=== PATIENT | female | born 1935 | race Caucasian/White ===

== ENCOUNTER 2016-09-20 17:15 | Inpatient (IN) | payer MEDICARE, OTHER ==
[2016-09-20] MEDS ORDERED: SODIUM CHLORIDE 0.9% 1000ML 1,000 ML IV ONE (17:20)
[2016-09-20] MEDS ORDERED: FENTANYL 12 MCG PATCH TDM TD SCH (18:00)
[2016-09-20 18:01] LABS: BASOPHILS % (AUTO) 0 % (0-3); EOSINOPHILS % (AUTO) 0 % (0-9); HEMATOCRIT 36 % (35-47); MEAN CORPUSCULAR HGB CONC 34.4 gm/dl (32.0-36.0); MONOCYTES % (AUTO) 5.5 % (0-12); NEUTROPHILS % (AUTO) 86.4 % (37-80)
[2016-09-20] MEDS: SODIUM CHLORIDE 0.9% FLUSH 10 ML SOL IV PRN (18:11)
[2016-09-20 18:17] LABS: ALBUMIN 3.2 gm/dl (3.4-5.0); CALCIUM 8.4 mg/dl (8.5-10.1); POTASSIUM 4.1 mMol/L (3.5-5.1)
[2016-09-20] MEDS ORDERED: ALBUTEROL NEB SOL 2.5MG/3ML 1 VIAL SOL NEB PRN (19:18)
[2016-09-20] MEDS ORDERED: PIPERACILLIN/TAZOBACT 3.375 GM PDS IV ONE (20:26)
[2016-09-20] MEDS: ALBUTEROL/IPRATROPIUM 1 VIAL SOL INH SCH (20:44)
[2016-09-20] MEDS: SOLUMEDROL 125 MG/2 ML 125 MG/2 ML PDS IV SCH (20:44)
[2016-09-20] MEDS: PIPERACILLIN/TAZOBACT 3.375 GM 3.375 GM in SODIUM CHLORIDE 0.9% 100 ML 100 ML IV SCH (20:45)
[2016-09-20] MEDS ORDERED: GABAPENTIN 800 MG PO SCH (21:00)
[2016-09-20] MEDS: PRAVASTATIN SODIUM 20 MG TAB PO SCH (21:07)
[2016-09-20] MEDS: GABAPENTIN 300 MG CAP PO SCH (21:08)
[2016-09-20] MEDS: GABAPENTIN 100 MG CAP PO SCH (21:08)
[2016-09-20] MEDS: ACETAMINOPHEN 325 MG PO PRN (21:08)
[2016-09-21] MEDS: ALBUTEROL/IPRATROPIUM 1 VIAL SOL INH SCH ×4 (02:02→19:52)
[2016-09-21] MEDS: SODIUM CHLORIDE 0.9% FLUSH 10 ML SOL IV PRN ×2 (02:02→19:37)
[2016-09-21] MEDS: PIPERACILLIN/TAZOBACT 3.375 GM 3.375 GM in SODIUM CHLORIDE 0.9% 100 ML 100 ML IV SCH ×4 (02:02→19:44)
[2016-09-21] MEDS: SOLUMEDROL 125 MG/2 ML 125 MG/2 ML PDS IV SCH ×4 (02:02→19:36)
[2016-09-21 07:23] LABS: CALCIUM 7.9 mg/dl (8.5-10.1); POTASSIUM 4.4 mMol/L (3.5-5.1)
[2016-09-21 07:32] LABS: BASOPHILS % (AUTO) 0 % (0-3); EOSINOPHILS % (AUTO) 0 % (0-9); HEMATOCRIT 32 % (35-47); MEAN CORPUSCULAR HGB CONC 35.7 gm/dl (32.0-36.0); MONOCYTES % (AUTO) 0.6 % (0-12); NEUTROPHILS % (AUTO) 94.7 % (37-80)
[2016-09-21] MEDS ORDERED: GABAPENTIN 100 MG CAP PO SCH (09:00)
[2016-09-21] MEDS: GABAPENTIN 100 MG CAP PO SCH ×3 (09:33→20:25)
[2016-09-21] MEDS: GABAPENTIN 300 MG CAP PO SCH ×3 (09:34→20:25)
[2016-09-21] MEDS: ATENOLOL 25 MG TAB PO SCH (09:34)
[2016-09-21] MEDS: CLOPIDOGREL 75 MG TAB PO SCH (09:35)
[2016-09-21] MEDS: PRAVASTATIN SODIUM 20 MG TAB PO SCH (20:25)
[2016-09-22] MEDS: SOLUMEDROL 125 MG/2 ML 125 MG/2 ML PDS IV SCH ×2 (01:13→06:59)
[2016-09-22] MEDS: SODIUM CHLORIDE 0.9% FLUSH 10 ML SOL IV PRN ×4 (01:14→21:12)
[2016-09-22] MEDS: PIPERACILLIN/TAZOBACT 3.375 GM 3.375 GM in SODIUM CHLORIDE 0.9% 100 ML 100 ML IV SCH ×2 (01:19→06:59)
[2016-09-22] MEDS: ALBUTEROL/IPRATROPIUM 1 VIAL SOL INH SCH ×4 (01:41→19:41)
[2016-09-22] MEDS: GABAPENTIN 300 MG CAP PO SCH ×3 (08:34→20:12)
[2016-09-22] MEDS: CLOPIDOGREL 75 MG TAB PO SCH (08:34)
[2016-09-22] MEDS: GABAPENTIN 100 MG CAP PO SCH ×3 (08:34→20:12)
[2016-09-22] MEDS: ATENOLOL 25 MG TAB PO SCH (08:34)
[2016-09-22] MEDS ORDERED: PREDNISONE 20 MG TAB PO SCH (09:00)
[2016-09-22] MEDS: CEFUROXIME 250 MG/5 ML PDR PO SCH ×2 (10:02→21:03)
[2016-09-22] MEDS: ACETAMINOPHEN 325 MG PO PRN ×2 (13:02→21:22)
[2016-09-22] MEDS: PRAVASTATIN SODIUM 20 MG TAB PO SCH (20:12)
[2016-09-22] MEDS: METRONIDAZOLE 250 MG TAB PO SCH (22:50)
[2016-09-23] MEDS: ALBUTEROL/IPRATROPIUM 1 VIAL SOL INH SCH ×2 (01:17→08:05)
[2016-09-23 07:19] LABS: BASOPHILS % (AUTO) 0 % (0-3); EOSINOPHILS % (AUTO) 0 % (0-9); HEMATOCRIT 32 % (35-47); NEUTROPHILS % (AUTO) 74.4 % (37-80)
[2016-09-23 07:30] LABS: CALCIUM 7.7 mg/dl (8.5-10.1); POTASSIUM 3.6 mMol/L (3.5-5.1)
[2016-09-23] MEDS: SODIUM CHLORIDE 0.9% FLUSH 10 ML SOL IV PRN (07:59)
[2016-09-23] MEDS: CLOPIDOGREL 75 MG TAB PO SCH (08:00)
[2016-09-23] MEDS: GABAPENTIN 300 MG CAP PO SCH (08:00)
[2016-09-23] MEDS: METRONIDAZOLE 250 MG TAB PO SCH (08:00)
[2016-09-23] MEDS: GABAPENTIN 100 MG CAP PO SCH (08:00)
[2016-09-23] MEDS: ATENOLOL 25 MG TAB PO SCH (08:01)
[2016-09-23] MEDS: CEFUROXIME 250 MG/5 ML PDR PO SCH (08:05)
[2016-09-23 08:48] VITALS: BP 108/60; TEMP 98.3
[2016-09-23] MEDS ORDERED: PREDNISONE 20 MG TAB PO SCH (09:00)
[2016-09-23] MEDS ORDERED: FENTANYL 12 MCG PATCH TDM TD SCH (09:00)
[2016-09-23] MEDS: ACETAMINOPHEN 325 MG PO PRN (09:37)
[2016-09-23 10:05] VITALS: PULSE 76; RESP 18; O2SAT 92
== END 2016-09-23 11:15 | disposition home or self-care (01) | DRG 190 ==
LOC: UNDOADMIN 17:15 → ACUTE CARE 17:15
PROVIDERS: ADMIT Family Medicine; ATTEND Family Medicine
DX: J44.1 Chronic obstructive pulmonary disease with (acute) exacerbation (principal); J18.1 Lobar pneumonia, unspecified organism; D68.2 Hereditary deficiency of other clotting factors; G62.9 Polyneuropathy, unspecified; Z87.891 Personal history of nicotine dependence; I10 Essential (primary) hypertension; E78.5 Hyperlipidemia, unspecified; Z79.01 Long term (current) use of anticoagulants; J44.0 Chronic obstructive pulmonary disease with (acute) lower respiratory infection; K52.9 Noninfective gastroenteritis and colitis, unspecified
CPT/HCPCS: 36415; 71020; 80048; 80053; 85025; 85610; 94664; J2543; J2930; J7603; J7620

== ENCOUNTER 2016-11-19 16:01 | Emergency (ER) | payer MEDICARE, OTHER ==
[2016-11-19 16:02] VITALS: O2SAT 92
[2016-11-19] MEDS ORDERED: LIDOCAINE HCL 2% MPF SOL ONE (16:29)
[2016-11-19] MEDS ORDERED: LIDOCAINE HCL 2% MPF SOL SC ONE (16:30)
[2016-11-19] MEDS ORDERED: ONDANSETRON 4 MG ODT BU ONE (16:43)
[2016-11-19 16:45] VITALS: BP 171/75; PULSE 102; RESP 22; TEMP 100
[2016-11-19] MEDS ORDERED: CYCLOBENZAPRINE 10 MG TAB ONE (17:09)
[2016-11-19] MEDS ORDERED: CYCLOBENZAPRINE 10 MG TAB PO ONE (17:10)
[2016-11-19] MEDS ORDERED: CYCLOBENZAPRINE HYDROCHLORID 5 MG TAB PO SCH (21:00)
== END 2016-11-19 17:40 | disposition home or self-care (01) | DRG 552 ==
LOC: ED 16:01
DX: M54.5 Low back pain (principal); M62.830 Muscle spasm of back; M48.56XD Collapsed vertebra, not elsewhere classified, lumbar region, subsequent encounter for fracture with routine healing
CPT/HCPCS: 20552; 99283; A6402

== ENCOUNTER 2017-04-04 15:56 | Inpatient (IN) | payer MEDICARE, OTHER ==
[2017-04-04 16:44] LABS: HEMATOCRIT 36 % (35-47); MEAN CORPUSCULAR HGB CONC 34.5 gm/dl (32.0-36.0); MEAN CORPUSCULAR VOLUME 84 fL (81-99)
[2017-04-04 17:26] LABS: ACANTHOCYTES PRESENT; BASOPHILS % (MANUAL) 0 % (0-3); EOSINOPHILS % (MANUAL) 0 % (0-9); LYMPHOCYTES % (MANUAL) 3 % (10-50); OVALOCYTES PRESENT
[2017-04-04] MEDS ORDERED: ACETAMINOPHEN 500 MG 500 MG TAB PO ONE (18:08)
[2017-04-04] MEDS ORDERED: ACETAMINOPHEN 500 MG 500 MG TAB ONE (18:10)
[2017-04-04] MEDS: SODIUM CHLORIDE 0.9% 1000ML 1,000 ML IV SCH ×3 (19:03→21:52)
[2017-04-04 19:46] LABS: CALCIUM 9.2 mg/dl (8.5-10.1); POTASSIUM 3.9 mMol/L (3.5-5.1)
[2017-04-04 19:55] LABS: APPEARANCE,URINE Clear; BILIRUBIN,URINE 2+ (NEGATIVE); COLOR,URINE Dark yellow; GLUCOSE, URINE (UA) NEGATIVE (NEGATIVE); KETONES,URINE 2+ (NEGATIVE); LEUKOCYTE ESTERASE ,URINE NEGATIVE (NEGATIVE); NITRATE,URINE NEGATIVE (NEGATIVE); OCCULT BLOOD,URINE TRACE LYSED (NEG-TRACE); PH,URINE 5.5
[2017-04-04] MEDS ORDERED: PIPERACILLIN/TAZOBACT 3.375 GM PDS IV ONE (20:04)
[2017-04-04 20:11] LABS: ICTOTEST,URINE NEGATIVE (NEGATIVE); RBC,URINE 0-2 (0-3AV/HPF)
[2017-04-04] MEDS: PIPERACILLIN/TAZOBACT 3.375 GM 3.375 GM in SODIUM CHLORIDE 0.9% 100 ML 100 ML IV SCH (20:13)
[2017-04-04] MEDS ORDERED: OXYCODONE HYDROCHLORIDE 10 MG TER PO PRN (20:51)
[2017-04-04] MEDS ORDERED: TIZANIDINE HCL 4 MG PO PRN (20:51)
[2017-04-04] MEDS ORDERED: FENTANYL 50 MCG PATCH TDM TD SCH (21:00)
[2017-04-04] MEDS ORDERED: GABAPENTIN 100 MG CAP PO SCH (21:00)
[2017-04-04] MEDS ORDERED: IBUPROFEN 400 MG TAB PO PRN (22:02)
[2017-04-04] MEDS: PRAVASTATIN SODIUM 20 MG TAB PO SCH (22:12)
[2017-04-04] MEDS: SODIUM CHLORIDE 0.9% FLUSH 10 ML SOL IV SCH (22:13)
[2017-04-05] MEDS ORDERED: PIPERACILLIN/TAZOBACT 3.375 GM PDS IV ONE ×4 (00:30→18:40)
[2017-04-05] MEDS ORDERED: SODIUM CHLORIDE 0.9% 100 ML 100 ML IV ONE ×4 (00:30→18:40)
[2017-04-05] MEDS: SODIUM CHLORIDE 0.9% FLUSH 10 ML SOL IV SCH ×4 (00:44→19:45)
[2017-04-05] MEDS: PIPERACILLIN/TAZOBACT 3.375 GM 3.375 GM in SODIUM CHLORIDE 0.9% 100 ML 100 ML IV SCH ×4 (00:44→19:01)
[2017-04-05] MEDS: ACETAMINOPHEN 325 MG PO PRN ×4 (02:48→21:20)
[2017-04-05 07:24] LABS: CALCIUM 8.5 mg/dl (8.5-10.1); POTASSIUM 3.6 mMol/L (3.5-5.1)
[2017-04-05 08:00] LABS: HEMATOCRIT 32 % (35-47); MEAN CORPUSCULAR HGB CONC 33.8 gm/dl (32.0-36.0); MEAN CORPUSCULAR VOLUME 85 fL (81-99)
[2017-04-05] MEDS ORDERED: ALBUTEROL NEB SOL 2.5MG/3ML 1 VIAL SOL NEB PRN (08:25)
[2017-04-05 08:40] LABS: BASOPHILS % (MANUAL) 0 % (0-3); EOSINOPHILS % (MANUAL) 0 % (0-9); LYMPHOCYTES % (MANUAL) 3 % (10-50)
[2017-04-05 08:41] LABS: ANISOCYTOSIS SLIGHT AMT
[2017-04-05 08:42] LABS: ACANTHOCYTES PRESENT
[2017-04-05] MEDS: OXYCODONE HYDROCHLORIDE 5 MG TAB PO PRN (08:58)
[2017-04-05] MEDS ORDERED: GABAPENTIN 100 MG CAP PO SCH (09:00)
[2017-04-05] MEDS: GABAPENTIN 100 MG CAP PO SCH ×3 (09:13→21:19)
[2017-04-05] MEDS: ALBUTEROL/IPRATROPIUM 1 VIAL SOL INH SCH ×3 (09:13→21:20)
[2017-04-05] MEDS: ATENOLOL 25 MG TAB PO SCH (09:13)
[2017-04-05] MEDS: GABAPENTIN 300 MG CAP PO SCH ×3 (09:13→21:19)
[2017-04-05] MEDS: FENTANYL 50 MCG PATCH TDM TD SCH (09:20)
[2017-04-05] MEDS: PRAVASTATIN SODIUM 20 MG TAB PO SCH (21:19)
[2017-04-06] MEDS: SODIUM CHLORIDE 0.9% FLUSH 10 ML SOL IV SCH ×4 (00:27→21:31)
[2017-04-06] MEDS ORDERED: SODIUM CHLORIDE 0.9% 100 ML 100 ML IV ONE ×2 (00:30→06:04)
[2017-04-06] MEDS ORDERED: PIPERACILLIN/TAZOBACT 3.375 GM PDS IV ONE ×2 (00:30→06:02)
[2017-04-06] MEDS: PIPERACILLIN/TAZOBACT 3.375 GM 3.375 GM in SODIUM CHLORIDE 0.9% 100 ML 100 ML IV SCH ×2 (00:54→06:23)
[2017-04-06] MEDS: ALBUTEROL/IPRATROPIUM 1 VIAL SOL INH SCH ×4 (01:50→21:29)
[2017-04-06] MEDS: ACETAMINOPHEN 325 MG PO PRN ×3 (04:57→21:45)
[2017-04-06 07:56] LABS: HEMATOCRIT 29 % (35-47); MEAN CORPUSCULAR HGB CONC 34.6 gm/dl (32.0-36.0); MEAN CORPUSCULAR VOLUME 84 fL (81-99)
[2017-04-06 09:03] LABS: BASOPHILS % (MANUAL) 0 % (0-3); EOSINOPHILS % (MANUAL) 0 % (0-9); LYMPHOCYTES % (MANUAL) 3 % (10-50); OVALOCYTES PRESENT
[2017-04-06 09:04] LABS: ACANTHOCYTES PRESENT
[2017-04-06] MEDS: GABAPENTIN 300 MG CAP PO SCH ×3 (09:17→21:30)
[2017-04-06] MEDS: ATENOLOL 25 MG TAB PO SCH (09:17)
[2017-04-06] MEDS: GABAPENTIN 100 MG CAP PO SCH ×3 (09:18→21:30)
[2017-04-06 09:49] LABS: CALCIUM 8.7 mg/dl (8.5-10.1); POTASSIUM 3.7 mMol/L (3.5-5.1)
[2017-04-06] MEDS: LEVOFLOXACIN 500 MG TAB PO SCH (11:50)
[2017-04-06] MEDS: CLOPIDOGREL 75 MG TAB PO SCH (13:23)
[2017-04-06] MEDS: PRAVASTATIN SODIUM 20 MG TAB PO SCH (21:30)
[2017-04-06] MEDS: OXYCODONE HYDROCHLORIDE 5 MG TAB PO PRN (21:31)
[2017-04-07] MEDS: ALBUTEROL/IPRATROPIUM 1 VIAL SOL INH SCH ×4 (02:15→20:18)
[2017-04-07] MEDS: SODIUM CHLORIDE 0.9% FLUSH 10 ML SOL IV SCH ×3 (06:14→22:26)
[2017-04-07 07:16] LABS: CALCIUM 8.8 mg/dl (8.5-10.1); POTASSIUM 4.3 mMol/L (3.5-5.1)
[2017-04-07 07:20] LABS: HEMATOCRIT 29 % (35-47); MEAN CORPUSCULAR HGB CONC 35.2 gm/dl (32.0-36.0); MEAN CORPUSCULAR VOLUME 85 fL (81-99)
[2017-04-07] MEDS: ACETAMINOPHEN 325 MG PO PRN ×3 (07:41→22:25)
[2017-04-07 08:11] LABS: ANISOCYTOSIS SLIGHT AMT; BASOPHILS % (MANUAL) 0 % (0-3); EOSINOPHILS % (MANUAL) 0 % (0-9); LYMPHOCYTES % (MANUAL) 13 % (10-50); OVALOCYTES PRESENT
[2017-04-07] MEDS: GABAPENTIN 100 MG CAP PO SCH ×3 (08:45→20:23)
[2017-04-07] MEDS: ATENOLOL 25 MG TAB PO SCH (08:45)
[2017-04-07] MEDS: GABAPENTIN 300 MG CAP PO SCH ×3 (08:45→20:24)
[2017-04-07] MEDS: LEVOFLOXACIN 500 MG TAB PO SCH (08:45)
[2017-04-07] MEDS: CLOPIDOGREL 75 MG TAB PO SCH (08:45)
[2017-04-07] MEDS: OXYCODONE HYDROCHLORIDE 5 MG TAB PO PRN ×2 (09:34→18:03)
[2017-04-07 15:02] VITALS: RESP 20
[2017-04-07] MEDS ORDERED: WARFARIN SODIUM 2.5 MG TAB PO SCH (18:00)
[2017-04-07] MEDS: PRAVASTATIN SODIUM 20 MG TAB PO SCH (20:22)
[2017-04-07] MEDS: AUGMENTIN(FRIDGE) 400 MG/5 ML PO SCH (20:31)
[2017-04-08] MEDS: ALBUTEROL/IPRATROPIUM 1 VIAL SOL INH SCH ×4 (02:45→20:52)
[2017-04-08] MEDS: SODIUM CHLORIDE 0.9% FLUSH 10 ML SOL IV SCH ×2 (06:24→15:11)
[2017-04-08] MEDS: OXYCODONE HYDROCHLORIDE 5 MG TAB PO PRN ×2 (06:28→20:49)
[2017-04-08] MEDS: AUGMENTIN(FRIDGE) 400 MG/5 ML PO SCH ×2 (06:29→18:57)
[2017-04-08 09:04] LABS: HEMATOCRIT 30 % (35-47); MEAN CORPUSCULAR HGB CONC 35.5 gm/dl (32.0-36.0); MEAN CORPUSCULAR VOLUME 85 fL (81-99)
[2017-04-08] MEDS: GABAPENTIN 100 MG CAP PO SCH ×3 (09:04→20:50)
[2017-04-08] MEDS: GABAPENTIN 300 MG CAP PO SCH ×3 (09:04→20:50)
[2017-04-08] MEDS: ATENOLOL 25 MG TAB PO SCH (09:05)
[2017-04-08] MEDS: CLOPIDOGREL 75 MG TAB PO SCH (09:05)
[2017-04-08 09:07] LABS: CALCIUM 8.8 mg/dl (8.5-10.1); POTASSIUM 4.1 mMol/L (3.5-5.1)
[2017-04-08] MEDS: FENTANYL 50 MCG PATCH TDM TD SCH (09:07)
[2017-04-08] MEDS: ACETAMINOPHEN 325 MG PO PRN ×3 (09:21→21:42)
[2017-04-08 09:47] LABS: BASOPHILS % (MANUAL) 0 % (0-3); EOSINOPHILS % (MANUAL) 0 % (0-9); LYMPHOCYTES % (MANUAL) 6 % (10-50)
[2017-04-08 09:48] LABS: ANISOCYTOSIS SLIGHT; OVALOCYTES PRESENT
[2017-04-08] MEDS ORDERED: WARFARIN SODIUM 2.5 MG TAB PO ONE (18:00)
[2017-04-08] MEDS: PRAVASTATIN SODIUM 20 MG TAB PO SCH (20:50)
[2017-04-09] MEDS: SODIUM CHLORIDE 0.9% FLUSH 10 ML SOL IV SCH ×2 (03:11→07:25)
[2017-04-09] MEDS: ALBUTEROL/IPRATROPIUM 1 VIAL SOL INH SCH ×2 (03:15→08:48)
[2017-04-09] MEDS: AUGMENTIN(FRIDGE) 400 MG/5 ML PO SCH (07:28)
[2017-04-09 08:08] LABS: CALCIUM 8.5 mg/dl (8.5-10.1); POTASSIUM 4.2 mMol/L (3.5-5.1)
[2017-04-09 08:50] LABS: HEMATOCRIT 26 % (35-47); MEAN CORPUSCULAR HGB CONC 34.1 gm/dl (32.0-36.0); MEAN CORPUSCULAR VOLUME 85 fL (81-99)
[2017-04-09] MEDS: OXYCODONE HYDROCHLORIDE 5 MG TAB PO PRN (08:50)
[2017-04-09] MEDS: ATENOLOL 25 MG TAB PO SCH (08:51)
[2017-04-09] MEDS: GABAPENTIN 100 MG CAP PO SCH ×2 (08:51→11:57)
[2017-04-09] MEDS: GABAPENTIN 300 MG CAP PO SCH ×2 (08:51→11:57)
[2017-04-09] MEDS: CLOPIDOGREL 75 MG TAB PO SCH (08:51)
[2017-04-09 08:53] VITALS: O2SAT 91
[2017-04-09 08:55] VITALS: BP 120/63; TEMP 98.6
[2017-04-09 09:00] VITALS: PULSE 101
[2017-04-09 09:25] LABS: BASOPHILS % (MANUAL) 0 % (0-3); EOSINOPHILS % (MANUAL) 0 % (0-9); LYMPHOCYTES % (MANUAL) 12 % (10-50)
[2017-04-09 09:26] LABS: ANISOCYTOSIS SLIGHT AMT; OVALOCYTES PRESENT
[2017-04-09] MEDS: ACETAMINOPHEN 325 MG PO PRN (13:01)
== END 2017-04-09 14:17 | DRG 194 ==
LOC: ED 15:56 → ACUTE CARE 20:30 → UNDOADMIN 20:30 → ACUTE CARE 20:45
PROVIDERS: ADMIT Family Medicine; ATTEND Family Medicine
DX: R50.9 Fever, unspecified (principal); J18.1 Lobar pneumonia, unspecified organism; D68.2 Hereditary deficiency of other clotting factors; I48.91 Unspecified atrial fibrillation; Z79.01 Long term (current) use of anticoagulants; R09.02 Hypoxemia
CPT/HCPCS: 36415; 71010; 80048; 81001; 85007; 85027; 85610; 87040; 87088; 94150; 94640; 94664; 96365; 96366; 99222; 99285; J2543; J7620

== ENCOUNTER 2017-05-11 10:49 | Emergency (ER) | payer MEDICARE, OTHER ==
[2017-05-11] MEDS ORDERED: MORPHINE SULFATE 10 MG/ML SOL IV ONE ×2 (11:02→14:34)
[2017-05-11] MEDS ORDERED: KETOROLAC TROMETHAMINE 30 MG/ML SOL IV ONE (11:02)
[2017-05-11] MEDS ORDERED: ONDANSETRON HCL 4 MG/2 ML SOL IV ONE (11:03)
[2017-05-11] MEDS ORDERED: MORPHINE SULFATE 10 MG/ML SOL ONE ×2 (11:10→14:34)
[2017-05-11] MEDS ORDERED: ONDANSETRON HCL 4 MG/2 ML SOL ONE (11:11)
[2017-05-11] MEDS ORDERED: KETOROLAC TROMETHAMINE 30 MG/ML SOL ONE (11:11)
[2017-05-11 11:13] LABS: BASOPHILS % (AUTO) 1 % (0-3); EOSINOPHILS % (AUTO) 1 % (0-9); HEMATOCRIT 33 % (35-47); MEAN CORPUSCULAR HGB CONC 34.7 gm/dl (32.0-36.0); MEAN CORPUSCULAR VOLUME 87 fL (81-99); MONOCYTES % (AUTO) 6.6 % (0-12); NEUTROPHILS % (AUTO) 55.9 % (37-80)
[2017-05-11 11:27] LABS: ALBUMIN 3.5 gm/dl (3.4-5.0); ALT 13 IU/L (14-63); CALCIUM 8.7 mg/dl (8.5-10.1); GLOM FILT RATE 83 mL/min (>60); POTASSIUM 3.9 mMol/L (3.5-5.1); SODIUM 140 mMol/L (136-145)
[2017-05-11 13:08] LABS: BILIRUBIN,URINE NEGATIVE (NEGATIVE); COLOR,URINE Yellow; GLUCOSE, URINE (UA) NEGATIVE (NEGATIVE); KETONES,URINE NEGATIVE (NEGATIVE); LEUKOCYTE ESTERASE ,URINE TRACE (NEGATIVE); NITRATE,URINE NEGATIVE (NEGATIVE); OCCULT BLOOD,URINE NEGATIVE (NEG-TRACE); PH,URINE 5.5; UROBILINOGEN,URINE 0.2 (0.2-1.0 EU)
[2017-05-11 13:20] VITALS: TEMP 99.4
[2017-05-11 13:25] LABS: APPEARANCE,URINE SL CLOUDY; RBC,URINE NEG (0-3AV/HPF)
[2017-05-11] MEDS ORDERED: SODIUM CHLORIDE 0.9% FLUSH 10 ML SOL IV PRN (14:46)
[2017-05-11 16:35] VITALS: BP 110/54; PULSE 68; RESP 14; O2SAT 88
== END 2017-05-11 15:43 | disposition home or self-care (01) | DRG 563 ==
LOC: ED 10:49
DX: S29.011A Strain of muscle and tendon of front wall of thorax, initial encounter (principal); T17.590A Other foreign object in bronchus causing asphyxiation, initial encounter; I45.19 Other right bundle-branch block; R50.9 Fever, unspecified; X50.0XXA Overexertion from strenuous movement or load, initial encounter
CPT/HCPCS: 36415; 71010; 71275; 80053; 81001; 84484; 85025; 85378; 85610; 93005; 96374; 96375; 99284; 99285; J1885; J2270; J2405; Q9967

== ENCOUNTER 2017-05-26 13:29 | Emergency (ER) | payer MEDICARE, OTHER ==
[2017-05-26] MEDS ORDERED: PREDNISONE 20 MG TAB PO ONE (14:17)
[2017-05-26] MEDS ORDERED: PREDNISONE 20 MG TAB ONE (14:29)
[2017-05-26 15:14] VITALS: BP 124/62; PULSE 50; RESP 16; TEMP 97.9; O2SAT 95
== END 2017-05-26 15:33 | disposition home or self-care (01) | DRG 192 ==
LOC: ED 13:29
DX: J44.1 Chronic obstructive pulmonary disease with (acute) exacerbation (principal); R09.1 Pleurisy
CPT/HCPCS: 71020; 99282; 99283

== ENCOUNTER 2018-08-20 22:07 | Inpatient (IN) | payer MEDICARE, OTHER ==
[2018-08-20 22:47] LABS: HEMATOCRIT 32 % (35-47); HEMOGLOBIN 10.4 gm/dl (12.0-15.5); MEAN CORPUSCULAR HEMOGLOBIN 28.5 pg (27.0-32.0); MEAN CORPUSCULAR HGB CONC 32.9 gm/dl (32.0-36.0); MEAN CORPUSCULAR VOLUME 87 fL (81-99)
[2018-08-20 22:53] LABS: CALCIUM 8.6 mg/dl (8.5-10.1); CARBON DIOXIDE 27.2 mEq/L (21-32); CREATININE 0.76 mg/dl (0.60-1.00); POTASSIUM 4.2 mMol/L (3.5-5.1)
[2018-08-20 22:54] LABS: LACTIC ACID 1.4 mMol/L (0.0-2.0)
[2018-08-20 23:21] LABS: ACANTHOCYTES PRESENT; BAND NEUTROPHILS % (MANUAL) 2 %; BASOPHILS % (MANUAL) 0 % (0-3); EOSINOPHILS % (MANUAL) 0 % (0-9); LYMPHOCYTES % (MANUAL) 1 % (10-50); MONOCYTES % (MANUAL) 4 % (0-12); NEUTROPHILS % (MANUAL) 93 % (37-80); OVALOCYTES PRESENT; POIKILOCYTOSIS MOD AMT
[2018-08-20 23:26] LABS: APPEARANCE,URINE Clear; BILIRUBIN,URINE NEGATIVE (NEGATIVE); COLOR,URINE Dark yellow; GLUCOSE, URINE (UA) NEGATIVE (NEGATIVE); KETONES,URINE 1+ (NEGATIVE); LEUKOCYTE ESTERASE ,URINE TRACE (NEGATIVE); NITRATE,URINE NEGATIVE (NEGATIVE); OCCULT BLOOD,URINE 2+ (NEG-TRACE); PH,URINE 5.5
[2018-08-20] MEDS ORDERED: SODIUM CHLORIDE 0.9% 500 ML 500 ML IV ONE (23:34)
[2018-08-20 23:43] LABS: BACTERIA 2+ (< 1+); CRYSTALS NEGATIVE (0-3 AVE/HPF)
[2018-08-20 23:44] LABS: INFLUENZA A NEGATIVE (NEGATIVE); INFLUENZA B NEGATIVE (NEGATIVE)
[2018-08-20] MEDS ORDERED: WARFARIN SODIUM 5 MG TAB PO SCH (23:45)
[2018-08-21] MEDS ORDERED: PIPERACILLIN/TAZOBACT 3.375 GM PDS IV ONE ×2 (00:25→06:08)
[2018-08-21] MEDS: PIPERACILLIN/TAZOBACT 3.375 GM 3.375 GM in SODIUM CHLORIDE 0.9% 100 ML 100 ML IV SCH ×2 (00:40→06:14)
[2018-08-21] MEDS: SODIUM CHLORIDE 0.9% 1000ML 1,000 ML IV SCH ×2 (01:07→15:10)
[2018-08-21] MEDS: ACETAMINOPHEN 500 MG 500 MG TAB PO PRN ×2 (01:22→20:54)
[2018-08-21] MEDS ORDERED: SODIUM CHLORIDE 0.9% 100 ML 100 ML IV ONE ×2 (06:08→09:53)
[2018-08-21] MEDS ORDERED: LEVOFLOXACIN 25 MG/ML 500 MG in SODIUM CHLORIDE 0.9% 100 ML 100 ML IV SCH (08:15)
[2018-08-21] MEDS ORDERED: ALBUTEROL NEB SOL 2.5MG/3ML 1 VIAL SOL NEB PRN (08:16)
[2018-08-21] MEDS: ALBUTEROL/IPRATROPIUM 1 VIAL SOL INH SCH ×3 (08:34→21:04)
[2018-08-21] MEDS ORDERED: FENTANYL 25 MCG PATCH TDM TD SCH (09:00)
[2018-08-21 09:03] LABS: INR 3.72 (0.86-1.12)
[2018-08-21] MEDS ORDERED: LEVOFLOXACIN 25 MG/ML SOL IV ONE (09:53)
[2018-08-21] MEDS: SOLUMEDROL 125 MG/2 ML 125 MG/2 ML PDS IV SCH ×4 (09:56→21:06)
[2018-08-21] MEDS: GABAPENTIN 300 MG CAP PO SCH ×3 (09:57→20:54)
[2018-08-21] MEDS: GABAPENTIN 100 MG CAP PO SCH ×3 (09:57→20:54)
[2018-08-21] MEDS: ASPIRIN 81 MG CHEWABLE CTB PO SCH (09:57)
[2018-08-21] MEDS: CHOLECALCIFEROL 1,000 IU TAB PO SCH (09:58)
[2018-08-21] MEDS: ATENOLOL 25 MG TAB PO SCH (09:58)
[2018-08-21] MEDS: FENTANYL 25 MCG PATCH TDM TD SCH (10:12)
[2018-08-21 20:24] LABS: INR 6.98 (0.86-1.12)
[2018-08-22] MEDS: ALBUTEROL/IPRATROPIUM 1 VIAL SOL INH SCH ×4 (02:11→20:21)
[2018-08-22] MEDS: SOLUMEDROL 125 MG/2 ML 125 MG/2 ML PDS IV SCH (03:32)
[2018-08-22] MEDS: SODIUM CHLORIDE 0.9% 1000ML 1,000 ML IV SCH (03:36)
[2018-08-22 07:28] LABS: CALCIUM 9.4 mg/dl (8.5-10.1); CARBON DIOXIDE 24.2 mEq/L (21-32); CREATININE 0.8 mg/dl (0.60-1.00); POTASSIUM 3.7 mMol/L (3.5-5.1)
[2018-08-22 07:37] LABS: BASOPHILS % (AUTO) 0 % (0-3); EOSINOPHILS % (AUTO) 0 % (0-9); HEMATOCRIT 31 % (35-47); LYMPHOCYTES % (AUTO) 2.9 % (10-50); MEAN CORPUSCULAR HEMOGLOBIN 28.1 pg (27.0-32.0); MEAN CORPUSCULAR HGB CONC 32.1 gm/dl (32.0-36.0); MEAN CORPUSCULAR VOLUME 88 fL (81-99); MONOCYTES % (AUTO) 1.4 % (0-12); NEUTROPHILS % (AUTO) 95.4 % (37-80)
[2018-08-22 08:02] LABS: INR 6.1 (0.86-1.12)
[2018-08-22] MEDS: OXYCODONE HYDROCHLORIDE 5 MG TAB PO PRN ×2 (08:46→20:34)
[2018-08-22] MEDS: GABAPENTIN 100 MG CAP PO SCH ×3 (08:46→20:20)
[2018-08-22] MEDS: CHOLECALCIFEROL 1,000 IU TAB PO SCH (08:47)
[2018-08-22] MEDS: GABAPENTIN 300 MG CAP PO SCH ×3 (08:47→20:20)
[2018-08-22] MEDS: ASPIRIN 81 MG CHEWABLE CTB PO SCH (08:47)
[2018-08-22] MEDS: ATENOLOL 25 MG TAB PO SCH (08:47)
[2018-08-22] MEDS: LEVOFLOXACIN 500 MG TAB PO SCH (09:59)
[2018-08-22] MEDS: PREDNISONE 20 MG TAB PO SCH (09:59)
[2018-08-22] MEDS: ACETAMINOPHEN 500 MG 500 MG TAB PO PRN (14:50)
[2018-08-22] MEDS: SODIUM CHLORIDE 0.9% FLUSH 10 ML SOL IV SCH ×2 (16:56→23:00)
[2018-08-22] MEDS ORDERED: WARFARIN SODIUM 2.5 MG TAB PO SCH (18:00)
[2018-08-23] MEDS: ALBUTEROL/IPRATROPIUM 1 VIAL SOL INH SCH ×4 (02:18→20:09)
[2018-08-23 07:35] LABS: BASOPHILS % (AUTO) 0 % (0-3); EOSINOPHILS % (AUTO) 0 % (0-9); HEMATOCRIT 28 % (35-47); HEMOGLOBIN 9.3 gm/dl (12.0-15.5); LYMPHOCYTES % (AUTO) 3.8 % (10-50); MEAN CORPUSCULAR HEMOGLOBIN 28.1 pg (27.0-32.0); MEAN CORPUSCULAR HGB CONC 32.8 gm/dl (32.0-36.0); MEAN CORPUSCULAR VOLUME 86 fL (81-99); MONOCYTES % (AUTO) 4.1 % (0-12); NEUTROPHILS % (AUTO) 91.9 % (37-80)
[2018-08-23 07:57] LABS: CALCIUM 9.3 mg/dl (8.5-10.1); CARBON DIOXIDE 26.3 mEq/L (21-32); CREATININE 0.7 mg/dl (0.60-1.00); POTASSIUM 4.1 mMol/L (3.5-5.1)
[2018-08-23 07:59] LABS: INR 4.67 (0.86-1.12)
[2018-08-23] MEDS: ATENOLOL 25 MG TAB PO SCH (09:53)
[2018-08-23] MEDS: ASPIRIN 81 MG CHEWABLE CTB PO SCH (09:53)
[2018-08-23] MEDS: GABAPENTIN 300 MG CAP PO SCH ×3 (09:53→20:07)
[2018-08-23] MEDS: GABAPENTIN 100 MG CAP PO SCH ×3 (09:53→20:07)
[2018-08-23] MEDS: PREDNISONE 20 MG TAB PO SCH (09:54)
[2018-08-23] MEDS: LEVOFLOXACIN 500 MG TAB PO SCH (09:54)
[2018-08-23] MEDS: CHOLECALCIFEROL 1,000 IU TAB PO SCH (09:58)
[2018-08-23] MEDS: ACETAMINOPHEN 500 MG 500 MG TAB PO PRN (11:51)
[2018-08-23] MEDS: SODIUM CHLORIDE 0.9% FLUSH 10 ML SOL IV SCH (11:54)
[2018-08-23] MEDS: OXYCODONE HYDROCHLORIDE 5 MG TAB PO PRN (20:09)
[2018-08-24 00:22] VITALS: TEMP 98.5
[2018-08-24] MEDS: ALBUTEROL/IPRATROPIUM 1 VIAL SOL INH SCH ×2 (02:35→09:05)
[2018-08-24] MEDS: OXYCODONE HYDROCHLORIDE 5 MG TAB PO PRN (05:46)
[2018-08-24 07:40] LABS: BASOPHILS % (AUTO) 0 % (0-3); EOSINOPHILS % (AUTO) 0 % (0-9); HEMATOCRIT 28 % (35-47); HEMOGLOBIN 9.1 gm/dl (12.0-15.5); LYMPHOCYTES % (AUTO) 9.2 % (10-50); MEAN CORPUSCULAR HEMOGLOBIN 27.7 pg (27.0-32.0); MEAN CORPUSCULAR VOLUME 86 fL (81-99); MONOCYTES % (AUTO) 8.3 % (0-12); NEUTROPHILS % (AUTO) 82.3 % (37-80)
[2018-08-24 07:43] LABS: CALCIUM 8.7 mg/dl (8.5-10.1); CARBON DIOXIDE 29.6 mEq/L (21-32); CREATININE 0.6 mg/dl (0.60-1.00); POTASSIUM 3.5 mMol/L (3.5-5.1)
[2018-08-24 07:51] LABS: INR 3.05 (0.86-1.12)
[2018-08-24] MEDS: GABAPENTIN 100 MG CAP PO SCH (08:48)
[2018-08-24] MEDS: GABAPENTIN 300 MG CAP PO SCH (08:48)
[2018-08-24] MEDS: ATENOLOL 25 MG TAB PO SCH (08:48)
[2018-08-24] MEDS: CHOLECALCIFEROL 1,000 IU TAB PO SCH (08:48)
[2018-08-24] MEDS: PREDNISONE 20 MG TAB PO SCH (08:49)
[2018-08-24] MEDS: ASPIRIN 81 MG CHEWABLE CTB PO SCH (08:49)
[2018-08-24] MEDS: LEVOFLOXACIN 500 MG TAB PO SCH (08:50)
[2018-08-24 08:57] VITALS: BP 138/55
[2018-08-24] MEDS: FENTANYL 25 MCG PATCH TDM TD SCH (09:13)
[2018-08-24 11:26] VITALS: PULSE 86; RESP 16; O2SAT 97
[2018-08-26] MEDS ORDERED: WARFARIN SODIUM 2.5 MG TAB PO SCH ×2 (00:36→18:00)
== END 2018-08-24 10:55 | disposition home or self-care (01) | DRG 864 ==
LOC: ED 22:07 → ACUTE CARE 23:38
PROVIDERS: ADMIT Family Medicine; ATTEND Family Medicine
DX: R50.9 Fever, unspecified (principal); T17.590A Other foreign object in bronchus causing asphyxiation, initial encounter; N17.9 Acute kidney failure, unspecified; J44.1 Chronic obstructive pulmonary disease with (acute) exacerbation; D68.8 Other specified coagulation defects; D72.829 Elevated white blood cell count, unspecified; R05 Cough; R06.02 Shortness of breath; I48.91 Unspecified atrial fibrillation; R09.02 Hypoxemia
CPT/HCPCS: 36415; 71045; 80048; 81001; 85007; 85025; 85027; 85610; 87040; 87088; 87804; 93005; 94150; 94640; 94669; 99070; 99222; 99284; J1956; J2543; J2930; A9270-GY

== ENCOUNTER 2018-12-08 12:12 | Emergency (ER) | payer MEDICARE, OTHER ==
[2018-12-08 13:00] VITALS: RESP 18; TEMP 98; O2SAT 94
[2018-12-08 13:26] LABS: INR 1.77 (0.86-1.12)
[2018-12-08 14:32] VITALS: BP 134/64; PULSE 64
== END 2018-12-08 14:35 | disposition home or self-care (01) | DRG 605 ==
LOC: ED 12:12
DX: S40.021A Contusion of right upper arm, initial encounter (principal); Z79.01 Long term (current) use of anticoagulants
CPT/HCPCS: 36415; 73070; 85610; 99283

== ENCOUNTER 2019-02-08 13:06 | Inpatient (IN) | payer MEDICARE, OTHER ==
[2019-02-08 13:52] LABS: HEMATOCRIT 30 % (35-47); HEMOGLOBIN 9.9 gm/dl (12.0-15.5); MEAN CORPUSCULAR HEMOGLOBIN 28.6 pg (27.0-32.0); MEAN CORPUSCULAR HGB CONC 33.3 gm/dl (32.0-36.0); MEAN CORPUSCULAR VOLUME 86 fL (81-99)
[2019-02-08 14:02] LABS: ALBUMIN 2.9 gm/dl (3.4-5.0); BILIRUBIN,TOTAL 1.3 mg/dl (0.2-1.0); CALCIUM 8.7 mg/dl (8.5-10.1); CARBON DIOXIDE 28.7 mEq/L (21-32); CREATININE 1.31 mg/dl (0.60-1.00); TOTAL PROTEIN 6.6 gm/dl (6.4-8.2)
[2019-02-08 14:23] LABS: BAND NEUTROPHILS % (MANUAL) 5 %; BASOPHILS % (MANUAL) 0 % (0-3); EOSINOPHILS % (MANUAL) 0 % (0-9); LYMPHOCYTES % (MANUAL) 3 % (10-50); MONOCYTES % (MANUAL) 2 % (0-12); NEUTROPHILS % (MANUAL) 90 % (37-80)
[2019-02-08 14:24] LABS: ANISOCYTOSIS SLIGHT AMT; POIKILOCYTOSIS SLIGHT AMT
[2019-02-08] MEDS ORDERED: SOLUMEDROL 125 MG/2 ML 125 MG/2 ML PDS IV ONE (14:24)
[2019-02-08] MEDS ORDERED: SODIUM CHLORIDE 0.9% IV ONE (14:25)
[2019-02-08] MEDS ORDERED: CEFTRIAXONE 1 GM PDS 1 GM in SODIUM CHLORIDE 0.9% 50 ML 50 ML IV ONE (14:25)
[2019-02-08] MEDS ORDERED: DOXYCYCLINE 100 MG IV ONE ×2 (14:25→14:50)
[2019-02-08] MEDS ORDERED: CEFTRIAXONE 1 GM PDS ONE (14:27)
[2019-02-08] MEDS ORDERED: SOLUMEDROL 125 MG/2 ML 125 MG/2 ML PDS ONE (14:27)
[2019-02-08] MEDS: SODIUM CHLORIDE 0.9% FLUSH 10 ML SOL IV SCH ×3 (16:00→23:28)
[2019-02-08] MEDS ORDERED: ACETAMINOPHEN 500 MG 500 MG TAB ONE (16:28)
[2019-02-08] MEDS ORDERED: ACETAMINOPHEN 500 MG 500 MG TAB PO PRN ×2 (16:30→19:49)
[2019-02-08] MEDS ORDERED: OXYCODONE HYDROCHLORIDE 5 MG TAB PO PRN (19:49)
[2019-02-08] MEDS ORDERED: PATIENT EDUCATION 1 MISC PRN (20:42)
[2019-02-08] MEDS ORDERED: RIVAROXABAN 10 MG TAB PO SCH (21:00)
[2019-02-08] MEDS ORDERED: GABAPENTIN 100 MG CAP PO SCH (21:00)
[2019-02-08] MEDS: ALBUTEROL NEB SOL 2.5MG/3ML 1 VIAL SOL NEB SCH (21:14)
[2019-02-08] MEDS: OMEGA PO SCH (21:17)
[2019-02-08] MEDS: FISH OIL PO SCH (21:17)
[2019-02-08] MEDS: FATTY ACIDS PO SCH (21:17)
[2019-02-09] MEDS ORDERED: DOXYCYCLINE 100 MG IV ONE ×3 (05:06→17:31)
[2019-02-09] MEDS ORDERED: SODIUM CHLORIDE 0.9% 250 ML 250 ML IV ONE ×2 (05:07→17:31)
[2019-02-09] MEDS: SODIUM CHLORIDE 0.9% IV SCH ×2 (05:33→17:45)
[2019-02-09] MEDS: DOXYCYCLINE 100 MG IV SCH ×2 (05:33→17:45)
[2019-02-09] MEDS ORDERED: SODIUM CHLORIDE 0.9% IV ONE (07:00)
[2019-02-09] MEDS ORDERED: CEFTRIAXONE 1 GM PDS 1 GM in SODIUM CHLORIDE 0.9% 50 ML 50 ML IV ONE (07:00)
[2019-02-09 07:47] LABS: HEMATOCRIT 28 % (35-47); HEMOGLOBIN 9.4 gm/dl (12.0-15.5); MEAN CORPUSCULAR HEMOGLOBIN 28.6 pg (27.0-32.0); MEAN CORPUSCULAR HGB CONC 33.2 gm/dl (32.0-36.0); MEAN CORPUSCULAR VOLUME 86 fL (81-99)
[2019-02-09 07:55] LABS: ALBUMIN 2.4 gm/dl (3.4-5.0); BILIRUBIN,TOTAL 0.8 mg/dl (0.2-1.0); CALCIUM 8.7 mg/dl (8.5-10.1); CARBON DIOXIDE 29.2 mEq/L (21-32); CREATININE 0.89 mg/dl (0.60-1.00); POTASSIUM 4.1 mMol/L (3.5-5.1); TOTAL PROTEIN 6.2 gm/dl (6.4-8.2)
[2019-02-09 08:44] LABS: BAND NEUTROPHILS % (MANUAL) 0 %; BASOPHILS % (MANUAL) 0 % (0-3); EOSINOPHILS % (MANUAL) 0 % (0-9); LYMPHOCYTES % (MANUAL) 4 % (10-50); MONOCYTES % (MANUAL) 3 % (0-12); NEUTROPHILS % (MANUAL) 93 % (37-80); POIKILOCYTOSIS SLIGHT AMT
[2019-02-09] MEDS: GABAPENTIN 100 MG CAP PO SCH ×3 (09:37→20:24)
[2019-02-09] MEDS: ATENOLOL 25 MG TAB PO SCH (09:38)
[2019-02-09] MEDS: SODIUM CHLORIDE 0.9% FLUSH 10 ML SOL IV SCH ×2 (09:38→15:16)
[2019-02-09] MEDS: CHOLECALCIFEROL 1,000 IU TAB PO SCH (09:40)
[2019-02-09] MEDS: ASPIRIN 81 MG CHEWABLE CTB PO SCH (09:42)
[2019-02-09] MEDS: ALBUTEROL NEB SOL 2.5MG/3ML 1 VIAL SOL NEB SCH ×4 (09:44→20:25)
[2019-02-09] MEDS: ASCORBIC ACID/COPPER/LUTEIN/ 1 CAP SGL PO SCH ×2 (11:18→17:32)
[2019-02-09] MEDS: OMEGA PO SCH ×2 (11:18→20:24)
[2019-02-09] MEDS: FATTY ACIDS PO SCH ×2 (11:18→20:24)
[2019-02-09] MEDS: FISH OIL PO SCH ×2 (11:18→20:24)
[2019-02-09] MEDS: PREDNISONE 20 MG TAB PO SCH (11:54)
[2019-02-09] MEDS ORDERED: CEFTRIAXONE 1 GM PDS 1 GM in SODIUM CHLORIDE 0.9% 50 ML 50 ML IV SCH (15:00)
[2019-02-09] MEDS ORDERED: CEFTRIAXONE 1 GM PDS ONE (15:10)
[2019-02-09] MEDS ORDERED: SODIUM CHLORIDE 0.9% 50 ML 50 ML IV ONE (15:10)
[2019-02-09] MEDS: RIVAROXABAN 10 MG TAB PO SCH (17:33)
[2019-02-09] MEDS: GABAPENTIN 300 MG CAP PO SCH (20:23)
[2019-02-10] MEDS: SODIUM CHLORIDE 0.9% FLUSH 10 ML SOL IV SCH ×4 (00:47→16:52)
[2019-02-10] MEDS ORDERED: DOXYCYCLINE 100 MG IV ONE (05:24)
[2019-02-10] MEDS ORDERED: SODIUM CHLORIDE 0.9% 250 ML 250 ML IV ONE (05:24)
[2019-02-10] MEDS: DOXYCYCLINE 100 MG IV SCH (05:49)
[2019-02-10] MEDS: SODIUM CHLORIDE 0.9% IV SCH (05:49)
[2019-02-10 07:51] LABS: CALCIUM 8.8 mg/dl (8.5-10.1); CARBON DIOXIDE 28.3 mEq/L (21-32); CREATININE 0.88 mg/dl (0.60-1.00); POTASSIUM 4.3 mMol/L (3.5-5.1)
[2019-02-10 07:54] LABS: BASOPHILS % (AUTO) 0 % (0-3); EOSINOPHILS % (AUTO) 0 % (0-9); HEMATOCRIT 27 % (35-47); MEAN CORPUSCULAR HEMOGLOBIN 28.7 pg (27.0-32.0); MEAN CORPUSCULAR HGB CONC 33.5 gm/dl (32.0-36.0); MEAN CORPUSCULAR VOLUME 85 fL (81-99); MONOCYTES % (AUTO) 2.7 % (0-12); NEUTROPHILS % (AUTO) 93.2 % (37-80)
[2019-02-10] MEDS: GABAPENTIN 100 MG CAP PO SCH ×3 (08:07→20:48)
[2019-02-10] MEDS: CHOLECALCIFEROL 1,000 IU TAB PO SCH (08:07)
[2019-02-10] MEDS: GABAPENTIN 300 MG CAP PO SCH ×3 (08:07→20:49)
[2019-02-10] MEDS: OMEGA PO SCH ×2 (08:08→20:48)
[2019-02-10] MEDS: ASCORBIC ACID/COPPER/LUTEIN/ 1 CAP SGL PO SCH ×2 (08:08→17:55)
[2019-02-10] MEDS: FATTY ACIDS PO SCH ×2 (08:08→20:48)
[2019-02-10] MEDS: FISH OIL PO SCH ×2 (08:08→20:48)
[2019-02-10] MEDS: PREDNISONE 20 MG TAB PO SCH (08:08)
[2019-02-10] MEDS: ATENOLOL 25 MG TAB PO SCH (08:09)
[2019-02-10] MEDS: ALBUTEROL NEB SOL 2.5MG/3ML 1 VIAL SOL NEB SCH ×4 (08:10→20:55)
[2019-02-10] MEDS: ASPIRIN 81 MG CHEWABLE CTB PO SCH (08:10)
[2019-02-10] MEDS: LEVOFLOXACIN 500 MG TAB PO SCH (12:01)
[2019-02-10] MEDS: RIVAROXABAN 10 MG TAB PO SCH (17:55)
[2019-02-11] MEDS: SODIUM CHLORIDE 0.9% FLUSH 10 ML SOL IV SCH ×4 (01:40→20:34)
[2019-02-11 07:33] LABS: CALCIUM 9.1 mg/dl (8.5-10.1); CREATININE 0.79 mg/dl (0.60-1.00); POTASSIUM 4.6 mMol/L (3.5-5.1)
[2019-02-11] MEDS: ASCORBIC ACID/COPPER/LUTEIN/ 1 CAP SGL PO SCH ×2 (07:38→17:38)
[2019-02-11] MEDS: GABAPENTIN 300 MG CAP PO SCH ×3 (07:39→20:36)
[2019-02-11] MEDS: GABAPENTIN 100 MG CAP PO SCH ×3 (07:39→20:35)
[2019-02-11 07:42] LABS: BASOPHILS % (AUTO) 0 % (0-3); EOSINOPHILS % (AUTO) 0 % (0-9); HEMATOCRIT 26 % (35-47); HEMOGLOBIN 8.9 gm/dl (12.0-15.5); LYMPHOCYTES % (AUTO) 9.3 % (10-50); MEAN CORPUSCULAR HGB CONC 33.6 gm/dl (32.0-36.0); MEAN CORPUSCULAR VOLUME 86 fL (81-99); MONOCYTES % (AUTO) 6.5 % (0-12); NEUTROPHILS % (AUTO) 83.9 % (37-80)
[2019-02-11 07:44] LABS: CARBON DIOXIDE 28.9 mEq/L (21-32)
[2019-02-11] MEDS: FATTY ACIDS PO SCH ×2 (08:50→20:34)
[2019-02-11] MEDS: OMEGA PO SCH ×2 (08:50→20:34)
[2019-02-11] MEDS: FISH OIL PO SCH ×2 (08:50→20:34)
[2019-02-11] MEDS: CHOLECALCIFEROL 1,000 IU TAB PO SCH (08:51)
[2019-02-11] MEDS: ASPIRIN 81 MG CHEWABLE CTB PO SCH (08:52)
[2019-02-11] MEDS: ATENOLOL 25 MG TAB PO SCH (08:52)
[2019-02-11] MEDS: PREDNISONE 20 MG TAB PO SCH (08:53)
[2019-02-11] MEDS ORDERED: FENTANYL 25 MCG PATCH TDM TD SCH (09:00)
[2019-02-11] MEDS: ALBUTEROL NEB SOL 2.5MG/3ML 1 VIAL SOL NEB SCH ×4 (09:22→20:37)
[2019-02-11] MEDS ORDERED: FUROSEMIDE 20mg SOL IV SCH (09:45)
[2019-02-11 12:12] LABS: ABO O; ANTIBODY SCREEN Negative; RH TYPE Positive; UNIT TYPE O POSITIVE
[2019-02-11 12:13] LABS: UNIT TYPE O POSITIVE
[2019-02-11] MEDS: RIVAROXABAN 10 MG TAB PO SCH (17:39)
[2019-02-12] MEDS: SODIUM CHLORIDE 0.9% FLUSH 10 ML SOL IV SCH ×3 (01:07→08:33)
[2019-02-12 07:23] LABS: BASOPHILS % (AUTO) 0 % (0-3); EOSINOPHILS % (AUTO) 0 % (0-9); HEMATOCRIT 32 % (35-47); HEMOGLOBIN 10.5 gm/dl (12.0-15.5); LYMPHOCYTES % (AUTO) 12.3 % (10-50); MEAN CORPUSCULAR HEMOGLOBIN 28.4 pg (27.0-32.0); MEAN CORPUSCULAR HGB CONC 32.8 gm/dl (32.0-36.0); MEAN CORPUSCULAR VOLUME 87 fL (81-99); MONOCYTES % (AUTO) 7.5 % (0-12); NEUTROPHILS % (AUTO) 79.6 % (37-80)
[2019-02-12 07:29] LABS: CALCIUM 8.5 mg/dl (8.5-10.1); CREATININE 0.74 mg/dl (0.60-1.00); POTASSIUM 4.1 mMol/L (3.5-5.1)
[2019-02-12 07:36] LABS: CARBON DIOXIDE 28.4 mEq/L (21-32)
[2019-02-12 08:12] VITALS: BP 147/65; TEMP 99
[2019-02-12] MEDS: OMEGA PO SCH (08:18)
[2019-02-12] MEDS: FATTY ACIDS PO SCH (08:18)
[2019-02-12] MEDS: CHOLECALCIFEROL 1,000 IU TAB PO SCH (08:18)
[2019-02-12] MEDS: FISH OIL PO SCH (08:18)
[2019-02-12] MEDS: GABAPENTIN 100 MG CAP PO SCH ×2 (08:19→12:41)
[2019-02-12] MEDS: ASCORBIC ACID/COPPER/LUTEIN/ 1 CAP SGL PO SCH (08:19)
[2019-02-12] MEDS: GABAPENTIN 300 MG CAP PO SCH ×2 (08:19→12:41)
[2019-02-12] MEDS: ATENOLOL 25 MG TAB PO SCH (08:20)
[2019-02-12] MEDS: ASPIRIN 81 MG CHEWABLE CTB PO SCH (08:20)
[2019-02-12] MEDS: PREDNISONE 20 MG TAB PO SCH (08:20)
[2019-02-12] MEDS: ALBUTEROL NEB SOL 2.5MG/3ML 1 VIAL SOL NEB SCH ×2 (08:29→12:57)
[2019-02-12] MEDS: LEVOFLOXACIN 500 MG TAB PO SCH (11:44)
[2019-02-12 12:58] VITALS: PULSE 71; RESP 18; O2SAT 92
== END 2019-02-12 13:30 | disposition home or self-care (01) | DRG 194 ==
LOC: ED 13:06 → ACUTE CARE 15:52 → UNDOADMIN 15:52 → ACUTE CARE 17:00
PROVIDERS: ADMIT Family Medicine; ATTEND Family Medicine
PROC: 30233N1 Transfusion of Nonautologous Red Blood Cells into Peripheral Vein, Percutaneous Approach (ICD-10-PCS; principal; 2019-02-11)
DX: J18.1 Lobar pneumonia, unspecified organism (principal); C34.90 Malignant neoplasm of unspecified part of unspecified bronchus or lung; N17.9 Acute kidney failure, unspecified; R50.9 Fever, unspecified; J44.9 Chronic obstructive pulmonary disease, unspecified; D64.9 Anemia, unspecified; I48.91 Unspecified atrial fibrillation; R09.02 Hypoxemia; R06.02 Shortness of breath; R05 Cough
CPT/HCPCS: 36415; 71046; 80048; 80053; 82272; 85007; 85025; 85027; 86850; 86900; 86901; 86920; 94150; 94640; 94664; 96365; 96366; 96374; 99070; 99231; 99283; 99284; J0696; J1940; J2930; J7613; P9016; A9270-GY; J3490